=== PATIENT | male | born 1980 | race Caucasian/White ===

== ENCOUNTER 2018-04-01 21:59 | Emergency (ER) | payer OTHER ==
[2018-04-01] MEDS ORDERED: Bacitracin Oint 1 GM U/D Packet TOP ONE (23:37)
--- NOTE | 2018-04-01 23:40 | EDM.PDOC ---
ED HPI GENERAL MEDICAL PROBLEM - General Chief Complaint: Laceration Stated Complaint: RIGHT 2ND FINGER LACERATION Time Seen by Provider: 04/01/18 23:38 Source of Information: Reports: Patient History Limitations: Reports: No Limitations - History of Present Illness INITIAL COMMENTS - FREE TEXT/NARRATIVE: pt has a 1/2 inch laceration on the distal chopra aspect of the 2nd finger on rt. Onset: Today, Other ( Pt was hitching up a trailer and he caught the finger creating a laceration ) Location: Reports: Upper Extremity, Right Associated Symptoms: Reports: No Other Symptoms, Other Right Finger-Middle Pain Score (Numeric/FACES): 2 - Related Data Allergies Allergy/AdvReac Type Severity Reaction Status Date / Time No Known Allergies Allergy Verified 04/01/18 23:32 Home Meds: Home Meds NK [No Known Home Meds] 04/01/18 [History] Past Medical History HEENT History: Reports: Impaired Vision - Infectious Disease History Infectious Disease History: Reports: Chicken Pox Social & Family History - Tobacco Use Smoking Status *Q: Never Smoker - Caffeine Use Caffeine Use: Reports: Coffee - Alcohol Use Days Per Week of Alcohol Use: 1 Number of Drinks Per Day: 1 Total Drinks Per Week: 1 - Recreational Drug Use Recreational Drug Use: No ED ROS GENERAL - Review of Systems Review Of Systems: See Below Constitutional: Reports: No Symptoms HEENT: Reports: No Symptoms Respiratory: Reports: No Symptoms Cardiovascular: Reports: No Symptoms Endocrine: Reports: No Symptoms GI/Abdominal: Reports: No Symptoms : Reports: No Symptoms Musculoskeletal: Reports: Other (laceration tip of the 2nd finger on the rt) Skin: Reports: No Symptoms Neurological: Reports: No Symptoms ED EXAM, SKIN/RASH Exam: See Below Text/Narrative:: pt has a 1/2 inch laceration of the tip of the 2nd finger on the rt. Exam Limited By: No Limitations General Appearance: Alert, Anxious Extremities: Other ( 2nd finger on the rt 1/2 inch laceration Pt has normal sensation and normal motion. ) Course - Vital Signs Last Recorded V/S: Last Vital Signs Temp 36.1 C 04/01/18 23:34 Pulse 55 L 04/01/18 23:34 Resp 18 04/01/18 23:34 BP 126/50 L 04/01/18 23:34 Pulse Ox 99 04/01/18 23:34 - Orders/Labs/Meds Meds: Medications Discontinued Medications Generic Name Dose Route Start Last Admin Trade Name Ron PRN Reason Stop Dose Admin Bacitracin 1 dose 04/01/18 23:37 04/01/18 23:51 Bacitracin Oint 1 Gm TOP 04/01/18 23:38 1 dose ONETIME ONE Administration Lidocaine HCl 5 ml 04/01/18 23:37 04/01/18 23:51 Xylocaine-Mpf 1% INJECT 04/01/18 23:38 5 ml ONETIME ONE Administration - Re-Assessments/Exams Free Text/Narrative Re-Assessment/Exam: 04/02/18 00:14 The area was cleansed well and infiltrated with lidocaine. The wound was brought together with 5-0 prolene. The wound was dressed with bacatracin. Departure - Departure Time of Disposition: 00:09 Disposition: Home, Self-Care 01 Condition: Fair Clinical Impression: Laceration - Discharge Information Referrals: PCP,None [Primary Care Provider] - Forms: ED Department Discharge Care Plan Goals: no further ointments, , keep dry, use the over the end of the finger splint. Dress with a dry dressing. Suture removal in 7-8 days.
== END 2018-04-02 00:25 | disposition home or self-care (01) ==
LOC: JP.ED 21:59
DX: S61.210A Laceration without foreign body of right index finger without damage to nail, initial encounter (principal); W23.1XXA Caught, crushed, jammed, or pinched between stationary objects, initial encounter
CPT/HCPCS: 12001; 99283; J2001